=== PATIENT | male | born 1960 | race Caucasian/White ===

== ENCOUNTER → 2017-12-09 | Day surgery (SDC) | payer OTHER ==
[~2017-12-09] VITALS: Ht 188 cm; Wt 126.1 kg
--- NOTE | 2017-12-09 14:32 | Operative Report ---
Operative/Inv Procedure Report Surgery Date: 12/09/17 Name of Procedure: right epididymal cyst excision Pre-Operative Diagnosis: right epididymal cyst Post-Operative Diagnosis: same Estimated Blood Loss: less than 50ml Surgeon/Director Marketing Communications: Tami Garcia MD Anesthesia: local monitored anesthesi Specimens: epid cyst and hydrocele sac Complications: none Condition: stable Operative Indication: bothersome right epididymal cyst Operative/Procedure Note Note: 57-year-old male with a history of right epididymal cyst that was becoming more bothersome. He had a scrotal ultrasound which confirmed the right epididymal cyst. He was given the risks, benefits and alternatives of the surgery and all questions were answered. Consent was signed in the holding area. Patient was taken to the operating and placed on the operating table in the supine position. Timeout was performed. IV antibiotics were infused. SCDs were placed. Patient was prepped and draped in the standard sterile fashion after genitalia was shaved with a clipper. 1% lidocaine with .25% Marcaine was infiltrated into the right inguinal cord for local anesthesia. The epididymal cyst was easily identified and a transverse incision was made and carried down to the cyst sac. During the dissection of the cyst, the testicle was delivered into the surgical field as it was too slippery to maintain it in a good position. The epididymal cyst was dissected free from its surrounding testicle and cord taking care not to injure the cord or testicle contents. There was also a small hydrocele sac that was very close to the cyst and this was dissected free as well. The cyst sac was sent for sent to pathology. The hydrocele sac was opened and some of the sac was resected to ensure that it did not reform. Point coagulation was performed. There was no active bleeding. The dartos layer was closed with a running 3-0 Vicryl suture. This was followed by interrupted horizontal 3-0 chromic sutures. Bacitracin was applied. Betadine solution was cleaned. Telfa and Telfa and fluffs were applied followed by a scrotal support. Sponge and needle count were correct at the end the case patient tolerated the procedure well. He was transferred to the recovery room stable condition. Findings: epididymal cyst large grape size and small hydrocele sac Discharge Disposition: Same Day Admissions
== END ==
LOC: STS 01:39
DX: N50.3 Cyst of epididymis (principal); N50.89 Other specified disorders of the male genital organs; N43.40 Spermatocele of epididymis, unspecified; N43.3 Hydrocele, unspecified; E66.9 Obesity, unspecified; Z68.36 Body mass index [BMI] 36.0-36.9, adult; Z85.828 Personal history of other malignant neoplasm of skin
CPT/HCPCS: J0131; J0744; J2001; J2250; J3490

== ENCOUNTER 2017-12-15 12:43 | Observation (INO) | payer OTHER ==
[~2017-12-15] VITALS: Ht 188 cm; Wt 124.7 kg
[2017-12-15 13:28] LABS: ABSOLUTE BASOPHIL COUNT 0 /CUMM (0.0-0.2); ABSOLUTE EOSINOPHIL COUNT 0 /CUMM (0.0-0.7); ABSOLUTE GRANULOCYTE CT 12.2 /CUMM (1.4-6.5); ABSOLUTE LYMPH COUNT 2.2 /CUMM (1.2-3.4); ABSOLUTE MONOCYTE COUNT 1.2 /CUMM (0.10-0.60); BASOPHIL % 0.2 % (0.0-2.0); EOSINOPHIL % 0.2 % (0-5); GRANULOCYTE % 78.2 % (42.2-75.2); HEMATOCRIT 50.4 % (42-52); MEAN CORPUSCULAR HGB CONC 34.2 G/DL (33.0-37.0); MEAN CORPUSCULAR VOLUME 84.9 FL (80.0-94.0); MEAN PLATELET VOLUME 7.1 FL (7.4-10.4); PLATELET COUNT 252 /CUMM (130-400); RBC DISTRIBUTION WIDTH 13.2 % (11.5-14.5); RED BLOOD CELL CT 5.93 /CUMM (4.70-6.10); WHITE BLOOD CELL COUNT 15.6 /CUMM (4.8-10.8)
--- NOTE | 2017-12-15 13:39 | ED GENERAL ADULT ---
History of Present Illness General Chief Complaint: Suture Removal/Wound Recheck Stated Complaint: SIB FOR POST SURGERY PROBLEMS ON SCROTUM Source: patient Exam Limitations: no limitations Vital Signs & Intake/Output Vital Signs & Intake/Output Vital Signs Date Time Temp Pulse Resp B/P B/P Pulse O2 O2 Flow FiO2 Mean Ox Delivery Rate 12/16 2039 97.2 107 18 144/86 94 Room Air 12/15 1802 94 18 139/86 99 Room Air 12/15 1556 98 18 138/88 99 Room Air 12/15 1310 96.4 125 20 151/94 95 Room Air Allergies Coded Allergies: Penicillins (RASH "ALLERGIC TO ALL CILLINS" PER [facility]X ORDER SHEET 12/08/17) Reconcile Medications Oxycodone HCl/Acetaminophen (Oxycodone-Acetaminophen 5-325) 5 MG-325 MG TABLET 1 TAB PO PRN PAIN (Reported) Triage Note: C/O PAIN IN R TESTICLE SINCE YESTERDAY, TODAY HAS LOW GRADE TEMP AND HIGH PULSE RATE, S/P 2 CYSTS REMOVED ON 12/09. DENIES DRAINAGE FROM INCISIONAL SITE. Triage Nurses Notes Reviewed? yes Onset: Abrupt Duration: day(s): Timing: no prior history HPI: Status post Surgery' right testicle pain and swelling, palpitations 12/15/17 5:32 PM 57-year-old male presents to the emergency department for right sided testicle pain and swelling. According to the patient he status post right testicle cyst removal by Dr. Garcia approximately 48 hours ago. He's had ongoing pain and swelling. He also apparently reports palpitations and some difficulty breathing. No chest pain. He also reports low-grade fever. Past History Travel History Traveled to [place] past 21 day No Medical History Any Pertinent Medical History? see below for history Neurological: NONE EENT: NONE Cardiovascular: NONE Respiratory: NONE Gastrointestinal: NONE Hepatic: NONE Renal: NONE Musculoskeletal: NONE Psychiatric: NONE Endocrine: NONE Surgical History Surgical History: s/p right testicle surg Psychosocial History Who do you live with Other (see notes) What is your primary language Gambian Tobacco Use: Never used ETOH Use: denies use Family History Hx Contributory? No Review of Systems Review of Systems Constitutional: Reports: fever. EENTM: Reports: no symptoms. Respiratory: Reports: short of breath. Cardiovascular: Denies: chest pain. GI: Denies: abdominal pain. Genitourinary: Reports: no symptoms. Musculoskeletal: Reports: no symptoms. Skin: Reports: rash. Neurological/Psychological: Reports: no symptoms. Hematologic/Endocrine: Reports: no symptoms. Immunologic/Allergic: Reports: no symptoms. Physical Exam Physical Exam General Appearance: well developed/nourished, alert, awake, anxious Head: atraumatic, normal appearance Eyes: Bilateral: normal appearance, PERRL, EOMI. Ears, Nose, Throat: normal pharynx, normal ENT inspection, hearing grossly normal Neck: normal inspection, supple, full range of motion Respiratory: normal breath sounds, chest non-tender, no respiratory distress Cardiovascular: regular rate/rhythm, tachycardia Peripheral Pulses: 4+ brachial (L), 4+ radial (R) Gastrointestinal: non-tender Back: normal inspection Extremities: no edema Neurologic/Psych: no motor/sensory deficits, awake, alert, oriented x 3 Skin: intact, normal color, warm/dry Core Measures ACS in differential dx? No CVA/TIA Diagnosis: No Sepsis Present: No Sepsis Focused Exam Completed? No Progress Differential Diagnoses I considered the following diagnoses in my evaluation of the patient: Cellulitis , necrotizing fasciitis, pulmonary embolism, pneumonia] Plan of Care: Orders Procedure Date/time Status Regular Diet 12/16 B Active CBC WITHOUT DIFFERENTIAL 12/16 599 Active Pathway - chart 12/15 2024 Active Code Status 12/[address] in observation 12/[address] in observation 12/15 1915 Active Patient Data 12/15 1903 Active Add-on Test (ER Only) 12/15 1606 Active Add-on Test (ER Only) 12/15 1323 Active TROPONIN LEVEL 12/15 1317 Complete D-DIMER 12/15 1317 Complete EKG 12/15 1311 Active URINALYSIS 12/15 1308 Complete LACTIC ACID 12/15 1308 Complete COMPREHENSIVE METABOLIC PANEL 12/15 1308 Complete CBC WITHOUT DIFFERENTIAL 12/15 1308 Complete Wound Care/Dressing 12/15 UNK Active VTE Mechanical Prophylaxis 12/15 UNK Active Vital Signs 12/15 UNK Active Activity/Ambulation 12/15 UNK Active Current Medications Sig/Davian Start time Last Medication Dose Stop Time Status Admin Ceftriaxone Sodium 1,000 MG DAILY 12/16 899 [facility] (Rocephin) Omeprazole 40 MG DAILY AC 12/16 699 [facility] (Prilosec) Heparin Sodium 5,000 UNIT Q8 12/15 2200 [facility]r (Porcine) Ketorolac 30 MG Q8P PRN 12/15 2029 UNVr Tromethamine (Toradol) Acetaminophen 650 MG Q6P PRN 12/15 2014 [facility]r (Tylenol) Morphine Sulfate 2 MG Q2P PRN 12/15 2014 [facility] (Morphine) Oxycodone/ 1 TAB Q4P PRN 12/15 2014 [facility] Acetaminophen (Percocet) Oxycodone/ 2 TAB Q4P PRN 12/15 2014 [facility] Acetaminophen (Percocet) Sodium Chloride 1,000 ML Q13H 12/15 2014 [facility] (Normal Saline 0.9%) Laboratory Tests 12/15/17 1608: Lactic Acid Cancelled 12/15/17 1530: Urine Color YEL, Urine Clarity CLEAR, Urine pH 6.0, Ur Specific Bertrand 1.025, Urine Protein NEG, Urine Ketones NEG, Urine Nitrite NEG, Urine Bilirubin NEG, Urine Urobilinogen 0.2, Ur Leukocyte Esterase NEG, Ur Microscopic EXAM NOT REQUIRED, Urine Hemoglobin NEG, Urine Glucose NEG 12/15/17 1317: Anion Gap 13, Estimated GFR > 60, BUN/Creatinine Ratio 19.1, Glucose 144 H, Lactic Acid 1.3, Calcium 9.7, Total Bilirubin 2.1 H, AST 15 L, ALT 30, Alkaline Phosphatase 73, Troponin I < 0.01, Total Protein 6.9, Albumin 4.1, Globulin 2.8, Albumin/Globulin Ratio 1.5, D-Dimer High Sensitivty < 200, CBC w Diff NO MAN DIFF REQ, RBC 5.93, MCV 84.9, MCH 29.0, MCHC 34.2, RDW 13.2, MPV 7.1 L, Gran % 78.2 H, Lymphocytes % 14.0 L, Monocytes % 7.4, Eosinophils % 0.2, Basophils % 0.2, Absolute Granulocytes 12.2 H, Absolute Lymphocytes 2.2, Absolute Monocytes 1.2 H, Absolute Eosinophils 0, Absolute Basophils 0 Initial ED EKG: sinus tach 108 Departure Departure Disposition: STILL A PATIENT Condition: Stable Clinical Impression Primary Impression: Cellulitis of scrotum Referrals: Norma CULP,Harris Beard (PCP/Family) Departure Forms: Customer Survey General Discharge Information Comments The patient has increased swelling to the right hemiscrotum. He has a white count of 15,000 and fever. I believe he has cellulitis wound infection of the right testicle. He was placed in inpatient observation for IV antibiotics, evaluation. Observation Note Spoke With: Tami Garcia MD Physician Advisor Notified: JESSICA QUINTANA DO Place Patient In: Non-ED OBS Care Area Rationale for Observation: My rational for observation is as follows [IV antibiotics, serial exams, evaluation]. Critical Care Note Critical Care Note Critical Care Time: non-applicable
--- NOTE | 2017-12-15 16:43 | RADIOLOGY REPORT ---
EXAMINATION: XR PORTABLE CHEST CLINICAL INFORMATION: Shortness of breath. COMPARISON: Chest x-ray 02/16/2008 TECHNIQUE: Portable frontal view of the chest was obtained. 4:14 PM FINDINGS: No significant abnormality is noted involving the heart, lungs, mediastinum, bony thorax or soft tissues. IMPRESSION: Unremarkable examination.
--- NOTE | 2017-12-15 16:52 | ULTRASOUND REPORT ---
EXAMINATION: US SCROTUM CLINICAL INFORMATION: Scrotal pain and swelling. Patient has surgery last Tuesday to remove 2 cysts from the right. COMPARISON: Scrotal ultrasound 04/27/2017 TECHNIQUE: A sonogram of the scrotum was performed assessing carpio-scale appearance and color Doppler flow. Spectral analysis and Doppler interrogation was performed. FINDINGS: RIGHT: Right testicle measures 4.9 x 2.8 x 2.9 cm, volume 28.3 mL. Parenchymal echotexture is normal. No focal testicular parenchymal lesions are visualized. Normal venous and arterial flow seen within the testicle. On the ultrasound study of 04/27/2017 a cystic lesion was present superior to the right testicle. This is been surgically removed. There is now a region of thickening which is heterogeneous in echotexture in this area related to the surgery. Vascular flow seen within this tissue. No hyperemia however. There is a moderate volume right sided hydrocele. Within the hydrocele there are thin and thick septations. The septations are new since the prior ultrasound of 04/27/2017. There is also low level echogenic debris within the hydrocele. Adjacent to the inferior pole of the right testicle is a anechoic cyst measuring 7 x 6 x 8 mm. LEFT: Left testicle measures 3 x 4.4 x 3.2 cm, volume 30 mL. Parenchymal echotexture is normal. No focal testicular parenchymal lesions are visualized. Normal venous and arterial flow seen within testicle. There is a anechoic cyst at the head of the left epididymis measuring 6 mm. There is a moderate volume hydrocele. IMPRESSION: 1. Postsurgical changes of the right scrotum with heterogeneous thickening related to the recent surgery. There is a mildly complex right-sided hydrocele now present. 2. Small anechoic cyst inferior right hemiscrotum adjacent to lower pole of the right testicle. 3. Normal left and right testicle 4. Moderate volume left-sided hydrocele which is anechoic. This critical result was discussed with Dr. Rao on 12/15/2017, 4:50 PM and it was ascertained that the content and urgency of the report was understood at the time of direct communication.
[2017-12-15] MEDS ORDERED: OXYCODONE-ACET1 EACH PO (18:02)
--- NOTE | 2017-12-15 21:17 | Admission Core Measures ---
Acute Coronary Syndrome (CM) ACS Core Measures Acute Coronary Syndrome Diagnosis No Congestive Heart Failure (NEW) CHF Core Measures Congestive Heart Failure Diagnosis No Cerebrovascular Accident CVA Core Measures CVA/TIA Diagnosis No Venous Thromboembolism VTE Core Angelica (View Protocol) VTE Risk Factors Age>40 No Mechanical VTE Prophylaxis d/t N/A MechProphylax Ordered No VTE Pharm Prophylaxis d/t NA PharmProphylax ordered Problem List As ranked by this Provider includes Assessment & Plan 1. Cellulitis of scrotum HOME MEDS Home Med List Oxycodone HCl/Acetaminophen (Oxycodone-Acetaminophen 5-325) 5 MG-325 MG TABLET 1 TAB PO PRN PAIN (Reported)
--- NOTE | 2017-12-15 21:29 | History & Physical ---
See Addendum General Information and HPI MD Statement: I have seen and personally examined SANDI BELLE and documented this H&P. The patient is a 57 year old M who presented with a patient stated chief complaint of [SCROTAL SWELLING, PAIN, REDNESS POST OP]. Source of Information: patient, family, old records Exam Limitations: no limitations History of Present Illness: 57-year-old male who is 6 days postop open epidermal 6 excision of the right testicle by Dr. Tami Garcia, presents to the ER with complaints of worsening scrotal pain, redness, swelling, fever, palpitations and tachycardia, generalized malaise and flulike illness. He states that postoperatively he was doing very well, he had minimal pain, took 2 Percocet the first 2 days, was up and ambulatory without difficulty and had no issues. Yesterday he started feeling mildly feverish, malaise, tachycardic, poor appetite. He had worsening pain in his scrotal area at the surgical site and mild worsening swelling. This morning when he woke up he noted redness to the area and worsening pain with a low-grade fever. He called his surgeon Dr. Garcia and his primary care doctor and he was advised to go to the ER for further evaluation. Upon admission to the ER he was evaluated by the emergency room staff, was found to have a white count of 15.7 thousand and a scrotal ultrasound was performed which is consistent with postoperative changes, no abscess, no decreased flow noted. Surgery was consulted for evaluation and management of his postop surgical infection. He was initially tachycardic upon arrival, with administration of IV fluids and medication, his tachycardia resolved. He denies any shortness of breath or dyspnea on exertion, he denies chest pain. Allergies/Medications Allergies: Coded Allergies: Penicillins (RASH "ALLERGIC TO ALL CILLINS" PER [facility] ORDER SHEET 12/08/17) Home Med list Oxycodone HCl/Acetaminophen (Oxycodone-Acetaminophen 5-325) 5 MG-325 MG TABLET 1 TAB PO PRN PAIN (Reported) Past History Travel History Traveled to [place] past 21 day No Medical History Blood Transfusion Hx: No Neurological: NONE EENT: NONE Cardiovascular: NONE Respiratory: NONE Gastrointestinal: NONE Hepatic: NONE Renal: NONE Musculoskeletal: NONE Psychiatric: NONE Endocrine: NONE Isolation History: Standard Surgical History Surgical History: s/p right testicle surg Past Family/Social History Psychosocial History Where do you live? Home Services at Home: None Smoking Status: Never Smoked ETOH Use: denies use Functional Ability ADLs Independent: dressing, eating, toileting, bathing. Review of Systems Review of Systems Constitutional: Reports: see HPI, chills, diaphoresis, fever, malaise, weakness. EENTM: Reports: no symptoms. Cardiovascular: Reports: see HPI, palpitations. Respiratory: Reports: no symptoms. GI: Reports: no symptoms. Genitourinary: Reports: see HPI. Musculoskeletal: Reports: no symptoms. Skin: Reports: no symptoms. Neurological/Psychological: Reports: no symptoms. Hematologic/Endocrine: Reports: no symptoms. Immunologic/Allergic: Reports: no symptoms. Exam & Diagnostic Data Last 24 Hrs of Vital Signs/I&O Vital Signs Date Time Temp Pulse Resp B/P B/P Pulse O2 O2 Flow FiO2 Mean Ox Delivery Rate 12/15 2108 Room Air 12/15 2040 97.2 107 18 144/86 94 Room Air 12/15 1802 94 18 139/86 99 Room Air 12/15 1556 98 18 138/88 99 Room Air 12/15 1310 96.4 125 20 151/94 95 Room Air Intake & Output 12/15 1600 / 0800 12/15 0000 Intake Total Output Total Balance Patient 2475 lb Weight Weight Reported by Patient Measurement Method Physical Exam General Appearance Alert, Oriented X3, Cooperative, No Acute Distress Skin No Rashes Skin Temp/Moisture Exam: Warm/Dry Sepsis Skin Exam (color): Normal for Ethnicity HEENT Atraumatic, PERRLA, EOMI, Mucous Membr. moist/pink Neck Supple, No JVD Lymphatic + groin lymph nodes Cardiovascular Regular Rate, Normal S1, Normal S2, No Murmurs Lungs Clear to Auscultation, Normal Air Movement Abdomen Normal Bowel Sounds, Soft, No Tenderness Neurological Normal Speech, Strength at 5/5 X4 Ext Extremities No Clubbing, No Cyanosis, No Edema Reproductive (MALE) penis appears normal. scrotal incision R side w scant s/s drainage. + moderate swelling, erythema, warmth, tenderness, induration. no crepitus. Last 24 Hrs of Labs/Kenneth: Laboratory Tests 12/15/17 1608: Lactic Acid Cancelled 12/15/17 1530: Urine Color YEL, Urine Clarity CLEAR, Urine pH 6.0, Ur Specific Hardy 1.025, Urine Protein NEG, Urine Ketones NEG, Urine Nitrite NEG, Urine Bilirubin NEG, Urine Urobilinogen 0.2, Ur Leukocyte Esterase NEG, Ur Microscopic EXAM NOT REQUIRED, Urine Hemoglobin NEG, Urine Glucose NEG 12/15/17 1317: Anion Gap 13, Estimated GFR > 60, BUN/Creatinine Ratio 19.1, Glucose 144 H, Lactic Acid 1.3, Calcium 9.7, Total Bilirubin 2.1 H, AST 15 L, ALT 30, Alkaline Phosphatase 73, Troponin I < 0.01, Total Protein 6.9, Albumin 4.1, Globulin 2.8, Albumin/Globulin Ratio 1.5, D-Dimer High Sensitivty < 200, CBC w Diff NO MAN DIFF REQ, RBC 5.93, MCV 84.9, MCH 29.0, MCHC 34.2, RDW 13.2, MPV 7.1 L, Gran % 78.2 H, Lymphocytes % 14.0 L, Monocytes % 7.4, Eosinophils % 0.2, Basophils % 0.2, Absolute Granulocytes 12.2 H, Absolute Lymphocytes 2.2, Absolute Monocytes 1.2 H, Absolute Eosinophils 0, Absolute Basophils 0 Diagnostic Data EKG Results sinus tach 108, no st/t wave changes Assessment/Plan Assessment: 57-year-old male 6 day status post right testicular epididymal cyst excision here with postoperative wound cellulitis. He will require 23 hour observation in the hospital for antibiotics overnight and further monitoring. He was given Rocephin 1 g IV and this was ordered again for tomorrow morning. Warm compresses to the scrotal region, activity as tolerated, pain medication and antipyretics as needed. IV fluids overnight as patient was tachycardic. Regular diet. Monitor for signs of abscess formation and wound breakdown. Discussed with Dr. Campo who agrees with plan. Discussed with patient and family who understands and agrees with plan As Ranked By This Provider Problem List: 1. Cellulitis of scrotum 2. Postoperative wound cellulitis Core Measures/Misc (03/27) Acute Coronary Syndrome ACS Diagnosis: No Congestive Heart Failure Congestive Heart Failure Diagnosis No Cerebrovascular Accident CVA/TIA Diagnosis: No VTE (View Protocol) VTE Risk Factors Age>40 No Mechanical VTE Prophylaxis d/t N/A MechProphylax Ordered No VTE Pharm Prophylaxis d/t NA PharmProphylax ordered Sepsis (View protocol) Sepsis Present: No If YES complete Sepsis Event Note If YES complete Sepsis Event Note
[2017-12-15 22:20] VITALS: BP 142/80
[2017-12-16 06:37] VITALS: BP 114/76
[2017-12-16 07:33] LABS: ABSOLUTE BASOPHIL COUNT 0 /CUMM (0.0-0.2); ABSOLUTE EOSINOPHIL COUNT 0.2 /CUMM (0.0-0.7); ABSOLUTE GRANULOCYTE CT 7.6 /CUMM (1.4-6.5); ABSOLUTE LYMPH COUNT 2.3 /CUMM (1.2-3.4); BASOPHIL % 0.4 % (0.0-2.0); EOSINOPHIL % 1.4 % (0-5); GRANULOCYTE % 68.5 % (42.2-75.2); MEAN CORPUSCULAR HGB 28.6 PG (27.0-31.0); MEAN CORPUSCULAR HGB CONC 33.5 G/DL (33.0-37.0); MEAN CORPUSCULAR VOLUME 85.6 FL (80.0-94.0); MEAN PLATELET VOLUME 7.6 FL (7.4-10.4); PLATELET COUNT 212 /CUMM (130-400); RBC DISTRIBUTION WIDTH 13.4 % (11.5-14.5); WHITE BLOOD CELL COUNT 11.1 /CUMM (4.8-10.8)
--- NOTE | 2017-12-16 09:58 | PN- Urology ---
Subjective Subjective: Patient feeling better today after receiving IV antibiotics yesterday. His scrotum has decreased in swelling as well. He admits he over did it the first few days after surgery. He is no longer having palpitations or fevers. Review of Systems Constitutional: Reports: no symptoms. EENTM: Reports: no symptoms. Cardiovascular: Reports: no symptoms. Respiratory: Reports: no symptoms. Gastrointestinal: Reports: no symptoms. Genitourinary: Reports: pain. Musculoskeletal: Reports: no symptoms. Skin: Reports: no symptoms. Neurological/Psychological: Reports: no symptoms. Hematologic/Endocrine: Reports: no symptoms. Immunologic/Allergic: Reports: no symptoms. Objective Vital Signs and I&Os Vital Signs Date Time Temp Pulse Resp B/P B/P Pulse O2 O2 Flow FiO2 Mean Ox Delivery Rate 12/16 0800 Room Air / 0637 98.4 94 20 114/76 98 Room Air / 2220 99.0 107 19 142/80 94 Room Air / 2108 Room Air 06/ 2040 97.2 107 18 144/86 94 Room Air / 1802 94 18 139/86 99 Room Air 06/07 1556 98 18 138/88 99 Room Air 06/07 1310 96.4 125 20 151/94 95 Room Air Intake & Output 12/16 1600 / 0800 / 0000 / 1600 / 0800 / 0000 Intake Total 840 240 Output Total Balance 840 240 Intake, IV 600 Intake, Oral 240 240 Patient 124.738 kg 1122.64 kg Weight Weight Reported by Patient Reported by Patient Measurement Method Physical Exam: Pt lying in bed comfortable. Physical Exam General Appearance: well developed/nourished, no apparent distress, alert, awake , comfortable Head: atraumatic, normal appearance Ears, Nose, Throat: normal ENT inspection Neck: normal inspection Respiratory: normal breath sounds, no respiratory distress Abdomen: soft, non-tender Rectal: deferred Extremities: normal inspection, no edema Neurologic/Psychiatric: awake, alert, oriented x 3 Skin: intact, normal color, warm/dry Reproductive: Normal male genitalia (right test swollen & erythema) Current Medications: Current Medications Sig/Davian Start time Last Medication Dose Route Stop Time Status Admin Acetaminophen 650 MG Q6P PRN 12/15 2014 AC PO Ceftriaxone Sodium 1,000 MG Q24H 12/16 1800 AC IV Ceftriaxone Sodium 0 .STK-MED ONE 12/15 1856 DC .ROUTE Ceftriaxone Sodium 1,000 MG ONCE ONE 12/15 1800 DC 12/15 IV 12/15 180 1854 Heparin Sodium 5,000 UNIT Q8 12/15 2200 AC 12/16 (Porcine) SC 0506 Ketorolac 30 MG Q8P PRN 12/15 214 AC Tromethamine IV 12/18 2143 Ketorolac 30 MG Q8P PRN 12/15 2029 DC Tromethamine IV Morphine Sulfate 2 MG Q2P PRN 12/15 2014 AC IV Omeprazole 40 MG DAILY AC 12/16 07 AC 12/16 PO 0506 Oxycodone/ 1 TAB Q4P PRN 12/15 2014 AC Acetaminophen PO Oxycodone/ 2 TAB Q4P PRN 12/15 2014 AC 12/15 Acetaminophen PO 211 Patient Medication 1 ED ONE ONE 12/16 0930 DC Teaching ED 12/16 0931 Sodium Chloride 1,000 ML Q13H 12/15 2014 AC 12/15 IV 2127 Results Last 48 Hours of Labs: Laboratory Tests 12/16 12/15 0623 1608 Chemistry Lactic Acid Cancelled Hematology CBC w Diff NO MAN DIFF REQ WBC (4.8 - 10.8 /CUMM) 11.1 H RBC (4.70 - 6.10 /CUMM) 5.50 Hgb (14.0 - 18.0 G/DL) 15.7 Hct (42 - 52 %) 47.0 MCV (80.0 - 94.0 FL) 85.6 MCH (27.0 - 31.0 PG) 28.6 MCHC (33.0 - 37.0 G/DL) 33.5 RDW (11.5 - 14.5 %) 13.4 Plt Count (130 - 400 /CUMM) 212 MPV (7.4 - 10.4 FL) 7.6 Gran % (42.2 - 75.2 %) 68.5 Lymphocytes % (20.5 - 51.1 %) 20.9 Monocytes % (1.7 - 9.3 %) 8.8 Eosinophils % (0 - 5 %) 1.4 Basophils % (0.0 - 2.0 %) 0.4 Absolute Granulocytes (1.4 - 6.5 /CUMM) 7.6 H Absolute Lymphocytes (1.2 - 3.4 /CUMM) 2.3 Absolute Monocytes (0.10 - 0.60 /CUMM) 1.0 H Absolute Eosinophils (0.0 - 0.7 /CUMM) 0.2 Absolute Basophils (0.0 - 0.2 /CUMM) 0 12/15 12/15 1530 1317 Chemistry Sodium (137 - 145 mmol/L) 140 Potassium (3.5 - 5.1 mmol/L) 4.1 Chloride (98 - 107 mmol/L) 104 Carbon Dioxide (22 - 30 mmol/L) 23 Anion Gap (5 - 16) 13 BUN (9 - 20 mg/dL) 21 H Creatinine (0.7 - 1.2 mg/dL) 1.1 Estimated GFR (>60 ml/min) > 60 BUN/Creatinine Ratio (7 - 25 %) 19.1 Glucose (65 - 99 mg/dL) 144 H Lactic Acid (0.7 - 2.1 mmol/L) 1.3 Calcium (8.4 - 10.2 mg/dL) 9.7 Total Bilirubin (0.2 - 1.3 mg/dL) 2.1 H AST (17 - 59 U/L) 15 L ALT (21 - 72 U/L) 30 Alkaline Phosphatase (< 127 U/L) 73 Troponin I (<0.11 ng/ml) < 0.01 Total Protein (6.3 - 8.2 g/dL) 6.9 Albumin (3.5 - 5.0 g/dL) 4.1 Globulin (1.9 - 4.2 gm/dL) 2.8 Albumin/Globulin Ratio (1.1 - 2.2 %) 1.5 Coagulation D-Dimer High Sensitivty (0 - 243 ng/ml) < 200 Hematology CBC w Diff NO MAN DIFF REQ WBC (4.8 - 10.8 /CUMM) 15.6 H RBC (4.70 - 6.10 /CUMM) 5.93 Hgb (14.0 - 18.0 G/DL) 17.2 Hct (42 - 52 %) 50.4 MCV (80.0 - 94.0 FL) 84.9 MCH (27.0 - 31.0 PG) 29.0 MCHC (33.0 - 37.0 G/DL) 34.2 RDW (11.5 - 14.5 %) 13.2 Plt Count (130 - 400 /CUMM) 252 MPV (7.4 - 10.4 FL) 7.1 L Gran % (42.2 - 75.2 %) 78.2 H Lymphocytes % (20.5 - 51.1 %) 14.0 L Monocytes % (1.7 - 9.3 %) 7.4 Eosinophils % (0 - 5 %) 0.2 Basophils % (0.0 - 2.0 %) 0.2 Absolute Granulocytes (1.4 - 6.5 /CUMM) 12.2 H Absolute Lymphocytes (1.2 - 3.4 /CUMM) 2.2 Absolute Monocytes (0.10 - 0.60 /CUMM) 1.2 H Absolute Eosinophils (0.0 - 0.7 /CUMM) 0 Absolute Basophils (0.0 - 0.2 /CUMM) 0 Urines Urine Color (YEL,AMB,STR) YEL Urine Clarity (CLEAR) CLEAR Urine pH (5.0 - 8.0) 6.0 Ur Specific [place] (1.001 - 1.035) 1.025 Urine Protein (NEG,<30 MG/DL) NEG Urine Ketones (NEG) NEG Urine Nitrite (NEG) NEG Urine Bilirubin (NEG) NEG Urine Urobilinogen (0.1 - 1.0 EU/dl) 0.2 Ur Leukocyte Esterase (NEG) NEG Ur Microscopic EXAM NOT REQUIRED Urine Hemoglobin (NEG) NEG Urine Glucose (N MG/DL) NEG Assessment/Plan Assessment/Plan 57yo male with a right scrotal infection 5 days following right spermatocelectomy. He was treated with IV rocephin and improving. He can be discharged home with po cipro for ten days. He will FU on tuesday in the office. Scrotal support with well fitting briefs. Pain management as needed with pain meds received after surgery. Patient agrees with this plan and is eager to go home [facility] close FU. Core Measures Venous Thromboembolism VTE Risk Factors Age>40 No Mechanical VTE Prophylaxis d/t N/A MechProphylax Ordered No VTE Pharm Prophylaxis d/t NA PharmProphylax ordered
[2017-12-16] MEDS ORDERED: CIPRO500 M1 PO (10:04)
--- NOTE | 2017-12-16 10:04 | Patient Discharge Instructions ---
Discharge Instructions General Discharge Information You were seen/treated for: right scrotal infection 5 days following right spermatocelectomy You had these procedures: antibiotics Watch for these problems: fever>101.3, increased pain, increased redness/swelling/drainage Diet Continue normal diet: Yes Recommended Diet: Regular Activity Full Activity/No Limits: No Activity Self Limited: Yes Pounds, do NOT lift more than: 10 Acute Coronary Syndrome Inclusion Criteria At DC or during hospital stay patient has or had the following: ACS DIAGNOSIS No Discharge Core Measures Meds if any: Prescribed or Continued at Discharge Meds if any: NOT Prescribed or Continued at Discharge Congestive Heart Failure Inclusion Criteria At DC or during hospital stay patient has or had the following: CHF DIAGNOSIS No Discharge Core Measures Meds if any: Prescribed or Continued at Discharge Meds if any: NOT Prescribed or Continued at Discharge Cerebrovascular accident Inclusion Criteria At DC or during hospital stay patient has or had the following: CVA/TIA Diagnosis No Discharge Core Measures Meds if any: Prescribed or Continued at Discharge Meds if any: NOT Prescribed or Continued at Discharge Venous thromboembolism Inclusion Criteria VTE Diagnosis No VTE Type NONE VTE Confirmed by (Test) NONE Discharge Core Measures - Per Current guidelines, there needs to be overlap - treatment for the first 5 days of Warfarin therapy. - If discharged on Warfarin prior to 5 days of - overlap therapy, the patient will need to be - assessed for post discharge needs including - *Post discharge parental anticoagulation - *Warfarin and/or parental anticoagulation education - *Follow up date to check INR post discharge At least 5 days overlap therapy as Inpatient No Meds if any: Prescribed or Continued at Discharge Note: Overlap Therapy is Warfarin and Anticoagulant Meds if any: NOT Prescribed or Continued at Discharge
== END 2017-12-16 12:12 ==
LOC: ERH 12:43 → ERHI 19:15 → 2NB 19:15 → ENRESERV 20:16 → ENTRNSPT 20:40 → EDTRNSPT 20:50 → EDTRNSPTSTS 20:50 → 2NB 20:59 → CMPTRNSPT 21:23 → ENPENDDIS 12-16 09:54 → ENTRNSPT 12-16 11:49 → 2NB 12-16 12:12 → EDTRNSPTSTS 12-16 12:21 → CMPTRNSPT 12-16 12:42
PROVIDERS: Physician Assistant; Physician Assistant Surgical
DX: T81.4XXA Infection following a procedure, initial encounter (principal); N49.2 Inflammatory disorders of scrotum; R00.2 Palpitations; N43.3 Hydrocele, unspecified
CPT/HCPCS: 6040; 36592; 71045; 81003; 93005; 93010; 96372; 96374; G0378; J0696; J1644